=== PATIENT | male | born 1950 | race Caucasian/White ===

== ENCOUNTER 2019-03-30 08:23 | Emergency (ER) | payer MEDICAID, OTHER ==
[~2019-03-30] VITALS: Ht 182.9 cm; Wt 91.0 kg
[2019-03-30 09:26] LABS: HEMATOCRIT. 37.6 % (42.0-52.0); HEMOGLOBIN. 12.5 g/dL (14.0-18.0); MEAN CORPUSCULAR HEMOGLOBIN 29.9 pg (28.0-32.0); MEAN CORPUSCULAR VOLUME 89.6 fL (80.0-94.0); MEAN PLATELET VOLUME 8.2 fl (7.4-10.4); PLATELET 230 x1000/uL (130-400); RED CELL DISTRIBUTION WIDTH 15.3 % (11.6-14.6)
[2019-03-30 09:29] LABS: CHLORIDE 107 mEq/L (98-107)
[2019-03-30 09:54] LABS: PLATELET ESTIMATE NORMAL
[2019-03-30 10:33] LABS: BG CARBOXYHEMOGLOBIN 0.9 % (0.5-1.5); BG FRACTION INSPIRED OXYGEN 28; BG HCO3 ACT 23.8 mmol/L (22.0-26.0); BG METHEMOGLOBIN 0.1 % (0.0-1.5); BG OXYGEN SATURATION 93.9 % (92.0-98.5); BG PH 7.392 (7.350-7.450); BG PO2 73.8 mmHg (75.0-100.0); BG SAMPLE SITE RIGHT BRACHIAL; BG TOTAL HEMOGLOBIN 12.6 g/dL (12.0-18.0); BG VENT MODE NASAL CANNULA
[2019-03-30] MEDS ORDERED: ENOXAPARIN 100MG/ML SYR SUBCUT ONE (12:30)
[2019-03-30] MEDS ORDERED: SODIUM CHLORIDE 0.9% 500 ML IV ONE (13:15)
[2019-03-30] MEDS ORDERED: SODIUM CHLORIDE 0.9% 1,000 ML IV ONE (13:15)
[2019-03-30 17:06] VITALS: BP 135/78
== END 2019-03-30 17:30 | disposition short-term general hospital (02) ==
LOC: ER 08:23
DX: R06.03 Acute respiratory distress (principal); N17.9 Acute kidney failure, unspecified; R09.02 Hypoxemia; R06.82 Tachypnea, not elsewhere classified; E11.9 Type 2 diabetes mellitus without complications; R06.02 Shortness of breath; R05 Cough; R00.0 Tachycardia, unspecified; Z89.411 Acquired absence of right great toe
CPT/HCPCS: 36415; 36600; 71045; 76705; 78582; 80053; 82375; 82805; 83880; 84484; 85025; 85379; 87040; 87077; 87186; 93005; 96372; 99291; A9540; A9558; J1650; J7030; J7040